=== PATIENT | female | born 1945 | race Caucasian/White ===

== ENCOUNTER → 2017-01-05 | Outpatient (CLI) | payer MEDICARE, OTHER ==
[~2017-01-05] MED LIST: CHOL200024 PO; CINN500C14 PO; DIPH25TA23 PO; FISH OIL OMEGA1 EAC1 PO; GLUC-176 PO; INSU100V27 SQ; INSU100V28 SQ; LEVO125T70 PO; TURM500C7 PO
== END ==
LOC: WC.BC 13:48
PROVIDERS: ATTEND Nurse Practitioner Obstetrics & Gynecology
DX: N64.4 Mastodynia (principal)
CPT/HCPCS: 76642; G0204; G0279